=== PATIENT | female | born 1970 | race Caucasian/White ===

== ENCOUNTER 2023-05-16 11:38 | Observation (INO) | payer OTHER, SELFPAY ==
[2023-05-16] VITALS (8 sets, daily range): BP systolic 139–169; BP diastolic 75–102; BMI 22.3; BMI 21.7
[2023-05-16] MEDS: ZOFRAN 4 MG IV ×2 (06:33→17:27)
[2023-05-16 06:36] LABS: % Basophils 0.1 % (0-2); % Eosinophils 0.5 % (0-6); % Immature Granulocytes 0.3 % (0-0.5); % Lymphocytes 11.4 % (20.5-51.1); % Monocytes 8.1 % (1.7-9.3); % Neutrophils 79.6 % (42.2-75.2); Absolute Eosinophils 0.1 10^3/uL (0-0.7); Absolute Immature Granulocytes 0.1 10^3/uL (0-0.05); Absolute Lymphocytes 1.7 10^3/uL (1.2-3.4); Absolute Monocytes 1.2 10^3/uL (0.1-0.6); Hematocrit 36.1 % (37.0-47.0); Hemoglobin 12.7 g/dL (12.0-16.0); Mean Corp Hgb Conc. 35.2 g/dL (33.0-37.0); Mean Corpuscular Hgb 29.9 pg (27.0-31.0); Mean Corpuscular Volume 84.9 fL (81.0-99.0); Mean Platelet Volume 9.1 fL (7.4-10.4); Nucleated Red Blood Cells % 0 %; Platelet Count 379 10^3/uL (130-400); Red Blood Cell Count 4.25 10^6/uL (4.20-5.40); Red Cell Dist. Width 12.9 % (11.5-14.5)
[2023-05-16 06:49] LABS: ALT (SGPT) 26 U/L (0-35); AST (SGOT) 35 U/L (14-36); Albumin 5.3 g/dl (3.5-5.0); Alkaline Phosphatase 85 U/L (38-126); Blood Urea Nitrogen 20 mg/dl (7-17); Calcium 10.3 mg/dl (8.4-10.2); Carbon Dioxide 22 mmol/L (22-30); Chloride 96 mmol/L (98-107); Estimated Creatinine Clearance 69 ml/min; Glucose 130 mg/dl (70-99); Potassium 3.4 mmol/L (3.5-5.1); Sodium 133 mmol/L (135-145); Total Bilirubin 1.2 mg/dl (0.2-1.3); Total Protein 8.1 g/dl (6.3-8.2); eGFR > 60.00
--- NOTE | 2023-05-16 07:18 | ED.GENMED ---
History of Present Illness
General
Chief Complaint: Abdominal Symptoms
Time Seen by Provider: 05/16/23 07:00
Travel History
Have you had any contact with someone who has COVID-19?: No
Do you have any symptoms of coronavirus? Fever > 100 degrees, chills, cough, shortness of breath, sore throat, loss of taste or smell, muscle aches, or headache?: No
History of Present Illness
History of Present Illness:
Patient is 52-year-old female with a past medical of anxiety on medical marijuana here today for evaluation of approximately 3 to 4 days of nausea and vomiting. She reports greater than 20 episodes per day. No blood noted. She also reports a
small amount of diarrhea, 1-2 episodes per day. Diarrhea is noted to be watery. Patient has also noted generalized nonspecific persistent abdominal pain. No focality. No fevers. She has noted a mild cough. No congestion or sore throat. No
chest pain or difficulty breathing. Patient denies recent travel outside of the country. No recent antibiotic use. No sick contacts. She denies eating anything out of the ordinary. No prior abdominal surgeries.
Past History
Past History
ED Past Medical History: None
Social History
Tobacco: Non-smoker
Personal:
Living: with family
Review of Systems
Review of Systems
All Other Systems: ROS reviewed and negative except as documented in HPI and ROS
Phy Exam
Physical Exam
Physical Exam:
GENERAL: Alert , in no apparent distress
EYE: pupils equal and reactive
NECK: Supple, no significant adenopathy.
ENT: o/p clr, mmm.
CARDIAC: Regular rate and rhythm .
LUNGS: Clear breath sounds bilaterally, no acute respiratory distress, no wheezes/rales/rhonchi
ABDOMEN: Soft, mild nonfocal abdominal tenderness to palpation, no r/g, no cvat
NEUROLOGICAL: Alert and oriented, no focal neuro deficits
SKIN: Warm and dry, skin intact.
MUSCULOSKELETAL: No edema, well perfused.
PSYCH: Normal and appropriate interaction.
Course
Orders/Labs/Results
Orders:
Orders
05/16/23 06:28
CMP [Comprehensive Metabolic Panel] Urgent
Complete Blood Count/With Diff Urgent
Lipase Urgent
Comment: ADD ON
Magnesium Urgent
Comment: ADD ON
05/16/23 06:30
Ondansetron Injectable [Zofran] 4 mg .ROUTE .STK-MED ONE
05/16/23 06:32
Ondansetron Injectable [Zofran] 4 mg IV NOW STA
05/16/23 06:35
Electrocardiogram (*1) Urgent
Reason for Study: QTc Monitoring
EKG- Treatment ONCE
05/16/23 07:25
Lipase Urgent
Magnesium Urgent
Phosphorus Urgent
0.9% Sodium Chloride 1000 ml [Nss] 1,000 ml IV BOLUS
Test Result ONCE
05/16/23 07:26
CT Abd/pelvis W Iv Cont Urgent
Comment:
Reason For Exam: abd pain, vomiting
05/16/23 07:39
COVID-19 Antigen Urgent
Source: Nasal Swab
, Urine Qualitative Screen [HCG, Urine Qualitative Screen] Urgent
Date Specimen was Collected: 05/16/23
Time Specimen was Collected: 07:34
Urinalysis Reflex To Culture Urgent
Date Specimen was Collected: 05/16/23
Time Specimen was Collected: 07:34
Urine Microscopic Reflex Cult Urgent
Influenza A+B Rapid Molecular Urgent
KEV Source: Nasal Swab
Specimen Description:
Urine Culture Urgent
KEV Source: U
Specimen Description:
Date Specimen was Collected: 05/16/23
Time Specimen was Collected: 07:34
05/16/23 07:42
Add On- LAB Urgent
Tests Added?: magnesium, lipase, phosphorus, hcg
Abnormal Lab Results
05/16/23 05/16/23
06:28 07:39
WBC 15.0 H 10^3/uL
(4.8-10.8)
Hct 36.1 L %
(37.0-47.0)
Abs Immat Gran (auto) 0.1 H 10^3/uL
(0-0.05)
Absolute Neuts (auto) 12.0 H 10^3/uL
(1.4-6.5)
Absolute Monos (auto) 1.2 H 10^3/uL
(0.1-0.6)
Neutrophils % 79.6 H %
(42.2-75.2)
Lymphocytes % 11.4 L %
(20.5-51.1)
Sodium 133 L mmol/L
(135-145)
Potassium 3.4 L mmol/L
(3.5-5.1)
Chloride 96 L mmol/L
(98-107)
BUN 20 H mg/dl
(7-17)
Glucose 130 H mg/dl
(70-99)
Calcium 10.3 H mg/dl
(8.4-10.2)
Albumin 5.3 H g/dl
(3.5-5.0)
Lipase 457 H U/L
(23-300)
Urine Ketones 3+ A
(Negative)
Ur Occult Blood Reflex 3+ A
(Negative)
Urine Bilirubin 1+ A
(Negative)
Leukocyte Esterase Rfl Trace A
(Negative)
Urine RBC 16-20 A /HPF
(0-2)
Urine WBC (Reflex) 11-15 A /HPF
(0-5)
Urine Bacteria (Reflex) Moderate A
(Negative)
Urine Albumin (Reflex) 1+ A
(Neg - Trace)
05/16/23 06:28
05/16/23 06:28
Vital Signs
Initial and Last Documented VS:
Initial Vital Signs
Temp Pulse Resp BP Pulse Ox
97.6 F 93 16 168/102 97
05/16/23 06:00 05/16/23 06:00 05/16/23 06:00 05/16/23 06:00 05/16/23 06:00
Last Documented Vital Signs
Temp Pulse Resp BP Pulse Ox
97.6 F 93 16 166/82 98
05/16/23 06:00 05/16/23 06:00 05/16/23 06:00 05/16/23 07:00 05/16/23 07:00
MDM/Problems Addressed
Differential Diagnosis Includes:
Patient is 52-year-old female with a past medical of anxiety on medical marijuana here today for evaluation of approximately 3 to 4 days of nausea, vomiting, and abdominal pain. Overall, patient appears very well. She is mildly hypertensive here.
Physical examination described above. NPO. Will initiate laboratory testing. Will obtain CT scan of the abdomen and pelvis with IV contrast. Will insert IV and provide IV fluids and antiemetics. Will order viral testing.
05/16/2023 10:36: Screening labs reveal a leukocytosis to 15,000. Sodium 133. K 3.4. Chloride 96. BUN 20. Normal creatinine. Lipase 457. There is ketonuria and RBCs/WBCs. Urine culture will be sent. COVID testing negative. CT scan reveals extensive
diverticulosis with no CT evidence to suggest diverticulitis. Radiology states the differential includes possibility of gastroenteritis or very early diverticulitis. Patient made aware of findings. Differential at this time may be secondary to
gastroenteritis (viral) vs. hyperemesis from marijuana use vs. pancreatitis from ETOH use. Do not suspect diverticulitis given lack of CT findings. Discussed going home vs. admission to the hospital for continued treatment/monitoring. A trial of PO
was performed which patient failed. We will plan on admission to the hospital for further testing and evaluation. Patient stable at time of admission. All questions answered.
*Critical Care Note
Total Time (30-74mins, 75-104mins- exclusive of procedures): Not Applicable
ED Attending Note
-
Portions of this chart may have been created with voice recognition software.� Occasional wrong word or��sound alike� substitutions may have occurred due to the inherent limitations of voice recognition software.
Discharge Plan
Departure
Patient Disposition: Admit
Date of Disposition: 05/16/23
Time of Disposition: 10:19
Admit to: Med/Surg
Admit to doctor: Ernesto
Presentation/result/management discussed w/ accepting MD/DO: Hospitalist
Patient with high blood pressure during this ER visit?: Yes
Condition: Fair
Covid-19: Negative COVID-19
Discharge Problem:
Intractable nausea and vomiting, Elevated lipase
Prescriptions:
No Action
escitalopram oxalate 10 MG tablet
10 mg PO DAILY
bupropion HCl 150 MG tablet extended release 24 hr
300 mg PO DAILY
acetaminophen 325 MG tablet
650 mg PO Q4HPRN PRN (Reason: mild pain) Qty: 30 0RF
Referrals:
Enrique Gramajo MD [Family Provider] -
Interventions
Interventions:
*Risk Screen - Suicide Last Done: 05/16/23 06:00
*General Assessment Last Done: 05/16/23 06:00
*Neglect/Abuse Screening Last Done: 05/16/23 06:00
Discharge Date and Time
Print Language: UZBEK
[2023-05-16] MEDS: NSS 1000 IV (07:58)
[2023-05-16 08:04] LABS: Urine Albumin 1+ (Neg - Trace); Urine Bilirubin 1+ (Negative); Urine Character Clear (Clear); Urine Color Amber; Urine Glucose Negative (Negative); Urine Ketone 3+ (Negative); Urine Leukocyte Trace (Negative); Urine Nitrite Negative (Negative); Urine Occult Blood 3+ (Negative); Urine Specific Gravity 1.025 (<1.030); Urine Urobilinogen Negative (Neg - 1+)
[2023-05-16 08:09] LABS: COVID-19 Antigen Negative (Negative)
[2023-05-16 08:11] LABS: HCG, Urine Qualitative Screen Negative
[2023-05-16 08:15] LABS: Urine Bacteria Moderate (Negative); Urine Red Blood Cell 16-20 /HPF (0-2)
[2023-05-16 08:27] LABS: Lipase 457 U/L (23-300); Magnesium 1.9 mg/dl (1.6-2.3)
--- NOTE | 2023-05-16 11:27 | HPS.HSE ---
Family Physician
-
Family Physician: Enrique Gramajo
Chief Complaint
-
Nausea and vomiting for the last 3 days
History of Present Illness
52-year-old female with a past medical of anxiety on medical marijuana here today for evaluation of approximately 3 to 4 days of nausea and vomiting. She reports greater than 20 episodes per day. No blood noted. She also reports a small amount of
diarrhea, 1-2 episodes per day. Diarrhea is noted to be watery. Patient has also noted generalized nonspecific persistent abdominal pain. No focality. No fevers. She has noted a mild cough. No congestion or sore throat. No chest pain or
difficulty breathing. Patient denies recent travel outside of the country. No recent antibiotic use. No sick contacts. She denies eating anything out of the ordinary. No prior abdominal surgeries. She does mention in past and my history that
the patient took home a baby doc that was apparently homeless and was going to and this was taken home on Thursday the day immediately preceding her symptoms. She denied a any exposure to the dog excrement but was handling the talk on numerous
occasions unclear what hand hygiene was afterwards. Does admit to daily marijuana use that she takes orally via edibles for chronic anxiety. Also admits to daily alcohol usage but the last ingestion was Thursday prior to her symptoms had drank 4
beers at that time.
Results of CT scan were reviewed and were suggestive of possible underlying enteritis with a questionable of diverticulitis on the left side but nonspecific with diffuse diverticulosis noted. No mention of pancreatitis or gallbladder anomaly.
Initial lipase elevated at 450/15,000 leukocytosis./Hypokalemia 3.4
Medical History
Past Medical History
Past Medical History: Reports Other
Additional Past Medical History:
Chronic anxiety on medical marijuana
Past Surgical History: Reports None
Social History
Tobacco: Non-smoker
Alcohol: Daily
Drug: Marijuana (Medical marijuana for anxiety for years)
Personal:
Living: With Family
Employment: Employed
Family History
Family History: Not pertinent
Allergies / Home Medications
Allergies reflects when Allergies were last updated in [facility].
Home Medications with original date entered in [facility]
Allergy/Medication List:
Allergies
Allergy/AdvReac Type Severity Reaction Status Date / Time
Sulfa (Sulfonamide Allergy fever and Verified 05/16/23 06:32
Antibiotics) rash,
passed out
sulfasalazine Allergy fever and Verified 05/16/23 06:32
rash,
passed out
azithromycin [From Zithromax] AdvReac extreme Verified 05/16/23 06:32
dizziness
Home Medications
escitalopram oxalate 10 mg tablet 10 mg PO DAILY 04/06/14
bupropion HCl 150 mg 24 hr tablet, extended release 300 mg PO DAILY 09/09/18
acetaminophen 325 mg tablet 650 mg (2 x 325 mg) PO Q4HPRN PRN mild pain #30 tabs 09/22/18
Review of Systems
-
History Source: Patient
Constitutional: Reports See HPI; Denies Sleep Disturbance, Night Sweats or Chills
EENT: Reports No Symptoms and See HPI
Respiratory: Reports No Symptoms and See HPI
Cardiac: Reports No Symptoms and See HPI
Abdomen/GI: Reports Abdominal Pain (Mild points to epigastric area no radiation to back), Nausea (No hematemesis described), Vomiting and Diarrhea (1-2 times a day)
: Reports No Symptoms
Neurological: Reports No Symptoms
Psych: Reports No Symptoms
Physical Exam
Vital Signs
Vital Signs
Temp Pulse Resp BP Pulse Ox
97.6 F 93 16 166/82 98
05/16/23 06:00 05/16/23 06:00 05/16/23 06:00 05/16/23 07:00 05/16/23 07:00
Physical Exam
General: Well Developed
Respiratory: Clear
Cardiac: S1/S2 and Regular Rhythm
GI: Soft, Non Tender, Non Distended and Normal Bowel Sounds
Musculoskeletal: No Clubbing
Neuro: Awake and Alert
Psych: Calm
Laboratory Results
-
05/16/23 06:28
05/16/23 06:28
Laboratory Results
Total Bilirubin 1.2 mg/dl (0.2-1.3) 05/16/23 06:28
AST 35 U/L (14-36) 05/16/23:28
ALT 26 U/L (0-35) 05/16/23 06:28
Alkaline Phosphatase 85 U/L (38-126) 05/16/23:
Lipase 457 U/L (23-300) H 05/16/23 06:28
Data Reviewed
-
Critical Care Time (in minutes): 67
CT Scan: Report Reviewed by me and Discussed with Physician
Impression/Plan
-
IMPRESSION:
52-year-old female with a past medical of anxiety on medical marijuana here today for evaluation of approximately 3 to 4 days of nausea and vomiting. She reports greater than 20 episodes per day. No blood noted. She also reports a small amount of
diarrhea, 1-2 episodes per day. Diarrhea is noted to be watery. Patient has also noted generalized nonspecific persistent abdominal pain. No focality. No fevers. She has noted a mild cough. No congestion or sore throat. No chest pain or
difficulty breathing. Patient denies recent travel outside of the country. No recent antibiotic use. No sick contacts. She denies eating anything out of the ordinary. No prior abdominal surgeries. She does mention in past and my history that
the patient took home a baby doc that was apparently homeless and was going to and this was taken home on Thursday the day immediately preceding her symptoms. She denied a any exposure to the dog excrement but was handling the talk on numerous
occasions unclear what hand hygiene was afterwards. Does admit to daily marijuana use that she takes orally via edibles for chronic anxiety. Also admits to daily alcohol usage but the last ingestion was Thursday prior to her symptoms had drank 4
beers at that time.
Results of CT scan were reviewed and were suggestive of possible underlying enteritis with a questionable of diverticulitis on the left side but nonspecific with diffuse diverticulosis noted. No mention of pancreatitis or gallbladder anomaly.
Initial lipase elevated at 450/15,000 leukocytosis./Hypokalemia 3.4
Probable viral gastroenteritis versus mild pancreatitis
-CT imaging not definitive for either pancreatitis or diverticulitis
-No gallbladder pathology described on CT and clinical exam not indicative
-Does have alcohol use disorder but last ingestion was over 3 days ago 7 doubt risk of withdrawal but will treat as pancreatitis with elevated lipase
-IV fluids/ replete hypokalemia/clear liquids
-Cannot rule out hyperemesis from marijuana usage
-Antiemetics
-Analgesia with hydromorphone
Enteritis possibly from poultry exposure
-Took home baby duct with handling unclear hygiene
-Check stool for Salmonella Campylobacter etc.
-No apparent recent antibiotic exposure
-Would defer any antibiotics presently
Leukocytosis
-Could be reactive from any multiple factors
-Viral versus bacterial versus pancreatitis
Anxiety disorder
-Allow usage of buspirone and escitalopram
-Chronic medical marijuana use
DVT prophylaxis with Lovenox and venous pumps
Full CODE STATUS
--- NOTE | 2023-05-16 12:06 | CM ---
Cm reviewed medical records. OBS letter given.
Patient lives independently with spouse. Denies history of VN, SNF or DME. Patient confirmed that she is current with her PCP. Patient uses [facility] on [address].
PLAN: Home no needs.
[2023-05-16 14:05] LABS: Phosphorus 2.2 mg/dl (2.5-4.5)
[2023-05-16] MEDS: D5/0.45%NSS with KCL 20 MEQ 1000 IV (17:14)
[2023-05-16] MEDS: LOVENOX 40 MG SC (17:27)
[2023-05-16 18:27] LABS: TSH 1.21 uIU/ml (0.47-4.68)
[2023-05-16] MEDS: DILAUDID 0.5 MG IV (20:17)
[2023-05-16 23:55] LABS: Urine Albumin Trace (Neg - Trace); Urine Bilirubin Negative (Negative); Urine Character Clear (Clear); Urine Color Yellow; Urine Glucose Negative (Negative); Urine Ketone 3+ (Negative); Urine Leukocyte Negative (Negative); Urine Nitrite Negative (Negative); Urine Occult Blood 3+ (Negative); Urine Urobilinogen Negative (Neg - 1+); Urine pH 6.5 (5.0-9.0)
[2023-05-17 00:19] LABS: Urine Amorphous Seen; Urine Squamous Cell >30 /LPF (Few)
[2023-05-17 00:20] LABS: Urine Bacteria Few (Negative); Urine White Cell 0-2 /HPF (0-5)
[2023-05-17] MEDS: PEPCID 20 MG IV (02:07)
[2023-05-17] MEDS: D5/0.45%NSS with KCL 20 MEQ 1000 IV ×2 (02:59→13:53)
[2023-05-17 06:26] LABS: Hematocrit 34.5 % (37.0-47.0); Mean Corp Hgb Conc. 34.8 g/dL (33.0-37.0); Mean Corpuscular Hgb 29.8 pg (27.0-31.0); Mean Corpuscular Volume 85.6 fL (81.0-99.0); Mean Platelet Volume 9.3 fL (7.4-10.4); Platelet Count 323 10^3/uL (130-400); Red Blood Cell Count 4.03 10^6/uL (4.20-5.40); Red Cell Dist. Width 12.3 % (11.5-14.5); White Blood Cell Count 11.2 10^3/uL (4.8-10.8)
[2023-05-17 06:44] LABS: Blood Urea Nitrogen 7 mg/dl (7-17); Calcium 9.2 mg/dl (8.4-10.2); Carbon Dioxide 27 mmol/L (22-30); Chloride 95 mmol/L (98-107); Estimated Creatinine Clearance 92 ml/min; Glucose 120 mg/dl (70-99); Magnesium 1.9 mg/dl (1.6-2.3); Potassium 3.5 mmol/L (3.5-5.1); Sodium 131 mmol/L (135-145); eGFR > 60.00
[2023-05-17 06:54] LABS: Lipase 367 U/L (23-300)
[2023-05-17 07:00] VITALS: BP 148/88
[2023-05-17] MEDS: THIAMINE INJECTION 200 MG IV ×2 (08:05→20:03)
[2023-05-17] MEDS: WELLBUTRIN XL (24 hour extended release) 300 MG PO (08:06)
[2023-05-17] MEDS: LEXAPRO 10 MG PO (08:06)
[2023-05-17] MEDS: FOLVITE 1 MG PO (08:06)
--- NOTE | 2023-05-17 10:26 | W.PN.HOSP.TC ---
Today's Communication/Plan
-
Advance diet to full liquids
Continue IV fluids for now
Assessment / Plan
Assessment / Plan
52-year-old female with a past medical of anxiety on medical marijuana here today for evaluation of approximately 3 to 4 days of nausea and vomiting. She reports greater than 20 episodes per day. No blood noted. She also reports a small amount of
diarrhea, 1-2 episodes per day. Diarrhea is noted to be watery. Patient has also noted generalized nonspecific persistent abdominal pain. No focality. No fevers. She has noted a mild cough. No congestion or sore throat. No chest pain or
difficulty breathing. Patient denies recent travel outside of the country. No recent antibiotic use. No sick contacts. She denies eating anything out of the ordinary. No prior abdominal surgeries. She does mention in past and my history that
the patient took home a baby doc that was apparently homeless and was going to and this was taken home on Thursday the day immediately preceding her symptoms. She denied a any exposure to the dog excrement but was handling the talk on numerous
occasions unclear what hand hygiene was afterwards. Does admit to daily marijuana use that she takes orally via edibles for chronic anxiety. Also admits to daily alcohol usage but the last ingestion was Thursday prior to her symptoms had drank 4
beers at that time.
Results of CT scan were reviewed and were suggestive of possible underlying enteritis with a questionable of diverticulitis on the left side but nonspecific with diffuse diverticulosis noted. No mention of pancreatitis or gallbladder anomaly.
Initial lipase elevated at 450/15,000 leukocytosis./Hypokalemia 3.4
Probable viral gastroenteritis versus mild pancreatitis
-CT imaging not definitive for either pancreatitis or diverticulitis
-No gallbladder pathology described on CT and clinical exam not indicative
-Does have alcohol use disorder but last ingestion was over 3 days ago 7 doubt risk of withdrawal but will treat as pancreatitis with elevated lipase
-IV fluids/ replete hypokalemia/clear liquids>> advance to full liquids today
-Cannot rule out hyperemesis from marijuana usage
-Antiemetics
-Analgesia with hydromorphone
Enteritis possibly from poultry exposure/this is doubtful without continued diarrheal stooling
-Took home baby duct with handling unclear hygiene
-Check stool for Salmonella Campylobacter etc.
-No apparent recent antibiotic exposure
-Would defer any antibiotics presently
Leukocytosis improving
-Could be reactive from any multiple factors
-Viral versus bacterial versus pancreatitis
Anxiety disorder
-Allow usage of buspirone and escitalopram
-Chronic medical marijuana use
DVT prophylaxis with Lovenox and venous pumps
Full CODE STATUS
Anticipated Discharge: Within 24 hours
Subjective/Interval History
-
Date of Service: May 17, 2023
Describing less abdominal pain denies any cramping or diarrheal stooling unable to send any stool for culture as result.
Objective Data
-
Labs:
Laboratory Results
05/17/23
05:57
WBC 11.2 H
Hgb 12.0
Hct 34.5 L
Plt Count 323
Sodium 131 L
Potassium 3.5
Chloride 95 L
Carbon Dioxide 27
BUN 7
Creatinine 0.5 L
Glucose 120 H
Calcium 9.2
Vital Signs:
Vital Signs
Temp Pulse Resp BP Pulse Ox
98.6 F 76 18 148/88 97
05/17/23 07:00 05/17/23 07:00 05/17/23 07:00 05/17/23 07:00 05/17/23 07:00
I&O
05/16/23 05/17/23 05/18/23
06:59 06:59 06:59
Intake Total 120 / 120
Balance 120 / 120
Review of Systems
-
History Source: Patient
All other systems: Reviewed and negative
Constitutional: Denies Fever or No Appetite
EENT: Reports No Symptoms Reported
Respiratory: Reports No Symptoms
Cardiac: Reports No Symptoms
Abdomen/GI: Reports Abdominal Pain (Minor without radiation to back/no left lower quadrant pain)
Musculoskeletal: Reports No Symptoms
Skin: Reports No Symptoms
Neuro: Reports No Symptoms
Physical Exam
-
General: Well Developed
HEENT: Atraumatic
Respiratory: Clear to Auscultation
Cardiac: Regular Rhythm
GI: Soft, Nontender and Nondistended
Data Reviewed
-
Total Time Spent with Patient (in minutes): 56
CT Scan: Report Reviewed by me
Labs: Labs Reviewed by me (Lipase trending down sodium down to 131 potassium 3.5/leukocytosis trending down)
[2023-05-17 15:00] VITALS: BP 165/93
[2023-05-17] MEDS: LOVENOX 40 MG SC (17:45)
[2023-05-17 23:36] VITALS: BP 134/94
[2023-05-18] MEDS: D5/0.45%NSS with KCL 20 MEQ 1000 IV ×3 (00:36→18:29)
[2023-05-18 07:10] LABS: Hematocrit 32.3 % (37.0-47.0); Hemoglobin 11.2 g/dL (12.0-16.0); Mean Corp Hgb Conc. 34.7 g/dL (33.0-37.0); Mean Corpuscular Hgb 29.4 pg (27.0-31.0); Mean Corpuscular Volume 84.8 fL (81.0-99.0); Mean Platelet Volume 9.5 fL (7.4-10.4); Platelet Count 296 10^3/uL (130-400); Red Blood Cell Count 3.81 10^6/uL (4.20-5.40); Red Cell Dist. Width 12.2 % (11.5-14.5); White Blood Cell Count 7.5 10^3/uL (4.8-10.8)
[2023-05-18 07:25] VITALS: BP 168/92
[2023-05-18 07:32] LABS: ALT (SGPT) 21 U/L (0-35); AST (SGOT) 23 U/L (14-36); Albumin 4.2 g/dl (3.5-5.0); Alkaline Phosphatase 60 U/L (38-126); Blood Urea Nitrogen 2 mg/dl (7-17); Calcium 9.2 mg/dl (8.4-10.2); Carbon Dioxide 29 mmol/L (22-30); Chloride 98 mmol/L (98-107); Estimated Creatinine Clearance 92 ml/min; Glucose 110 mg/dl (70-99); Lipase 153 U/L (23-300); Sodium 131 mmol/L (135-145); Total Bilirubin 1.1 mg/dl (0.2-1.3); Total Protein 6.6 g/dl (6.3-8.2); eGFR > 60.00
--- NOTE | 2023-05-18 08:27 | W.PN.HOSP.TC ---
Today's Communication/Plan
-
IVF, Pain control, f/u stool studies
Assessment / Plan
Assessment / Plan
Physical exam:
General: Well Developed, Well Nourished and No Apparent Distress
HEENT: Normocephalic, Atraumatic and Moist Mucous Membranes
Respiratory: Clear to Auscultation; Negative Wheezes, Rales or Rhonchi
Cardiac: Regular Rhythm and S1/S2
GI: Soft, Nontender and Nondistended
Musculoskeletal: No Clubbing, No Cyanosis and No Edema
Neuro: Awake, Alert and Oriented
Psych: Calm
A/P:
Results of CT scan were reviewed and were suggestive of possible underlying enteritis with a questionable of diverticulitis on the left side but nonspecific with diffuse diverticulosis noted. No mention of pancreatitis or gallbladder anomaly.
Initial lipase elevated at 450/15,000 leukocytosis./Hypokalemia 3.4
Likely viral gastroenteritis (component of cannabinoid syndrome cannot be excluded). Doubt pancreatitis:
-CT imaging not definitive for either pancreatitis or diverticulitis
-No gallbladder pathology described on CT and clinical exam not indicative
-Does have alcohol use disorder but last ingestion was over 3 days ago 7 doubt risk of withdrawal but will treat as pancreatitis with elevated lipase
-IV fluids--> Keep full liquids today
-Antiemetics
-Analgesia with hydromorphone
Hyponatremia
Likely volume depletion
Mild
Continue to monitor
Enteritis possibly from poultry exposure/this is doubtful without continued diarrheal stooling
-Check stool for Salmonella Campylobacter etc.-->follow-up stool cultures, still pending
-No apparent recent antibiotic exposure
-Would defer any antibiotics presently
Leukocytosis improving
-WBC normal 7.5 today
-Could be reactive from any multiple factors
Anxiety disorder
-Allow usage of buspirone and escitalopram
-Chronic medical marijuana use
DVT prophylaxis with Lovenox and venous pumps
Full CODE STATUS
Anticipated Discharge: 24 - 48 hours
Subjective/Interval History
-
Date of Service: May 18, 2023
Patient having abdominal cramps today and some nausea. She still having some diarrhea as well.
Objective Data
-
Labs:
Laboratory Results
05/18/23
06:17
WBC 7.5
Hgb 11.2 L
Hct 32.3 L
Plt Count 296
Sodium 131 L
Potassium 4.0
Chloride 98
Carbon Dioxide 29
BUN 2 L
Creatinine 0.5 L
Glucose 110 H
Calcium 9.2
Total Bilirubin 1.1
AST 23
ALT 21
Alkaline Phosphatase 60
Vital Signs:
Vital Signs
Temp Pulse Resp BP Pulse Ox
98.6 F 65 17 168/92 99
05/18/23 07:25 05/18/23 07:25 05/18/23 07:25 05/18/23 07:25 05/18/23 07:25
I&O
05/17/23 05/18/23 05/19/23
06:59 06:59 06:59
Intake Total 1740 / 1740
Balance 1740 / 1740
[2023-05-18] MEDS: THIAMINE INJECTION 200 MG IV ×2 (08:41→20:52)
[2023-05-18] MEDS: WELLBUTRIN XL (24 hour extended release) 300 MG PO (08:41)
[2023-05-18] MEDS: LEXAPRO 10 MG PO (08:41)
[2023-05-18] MEDS: FOLVITE 1 MG PO (08:41)
[2023-05-18] MEDS: ZOFRAN 4 MG IV (08:43)
[2023-05-18] MEDS: DILAUDID 0.5 MG IV (09:37)
[2023-05-18 15:12] VITALS: BP 130/86
--- NOTE | 2023-05-18 15:48 | CM ---
Patient seen bedside.
Offered Alcohol counseling and [facility] services, patient declined, denies problems with ETOH, has an occasional drink.
Plan: home no needs anticipated.
[2023-05-18] MEDS: LOVENOX 40 MG SC (17:12)
[2023-05-18 23:36] VITALS: BP 126/74
[2023-05-19] MEDS: D5/0.45%NSS with KCL 20 MEQ 1000 IV (04:33)
[2023-05-19 07:30] VITALS: BP 129/84
[2023-05-19] MEDS: WELLBUTRIN XL (24 hour extended release) 300 MG PO (08:10)
[2023-05-19] MEDS: LEXAPRO 10 MG PO (08:10)
[2023-05-19] MEDS: FOLVITE 1 MG PO (08:10)
[2023-05-19] MEDS: THIAMINE INJECTION 200 MG IV (08:10)
--- NOTE | 2023-05-19 09:16 | W.PN.HOSP.TC ---
Today's Communication/Plan
-
Continue current management. Discharge planning today.
Assessment / Plan
Assessment / Plan
Physical exam:
General: Well Developed, Well Nourished and No Apparent Distress
HEENT: Normocephalic, Atraumatic and Moist Mucous Membranes
Respiratory: Clear to Auscultation; Negative Wheezes, Rales or Rhonchi
Cardiac: Regular Rhythm and S1/S2
GI: Soft, Nontender and Nondistended
Musculoskeletal: No Clubbing, No Cyanosis and No Edema
Neuro: Awake, Alert and Oriented
Psych: Calm
A/P:
Results of CT scan were reviewed and were suggestive of possible underlying enteritis with a questionable of diverticulitis on the left side but nonspecific with diffuse diverticulosis noted. No mention of pancreatitis or gallbladder anomaly.
Initial lipase elevated at 450/15,000 leukocytosis./Hypokalemia 3.4
Likely viral gastroenteritis (component of cannabinoid syndrome cannot be excluded). Doubt pancreatitis:
-CT imaging not definitive for either pancreatitis or diverticulitis
-No gallbladder pathology described on CT and clinical exam not indicative
-Does have alcohol use disorder but last ingestion was over 3 days ago 7 doubt risk of withdrawal but will treat as pancreatitis with elevated lipase
-IV fluids--> advance full liquid to low residue diet today
-Antiemetics
-Analgesia with hydromorphone
-Patient comfortable going home today
Hyponatremia
Likely volume depletion
Mild
Continue to monitor
Enteritis possibly from poultry exposure/this is doubtful without continued diarrheal stooling
-Check stool for Salmonella Campylobacter etc.-->follow-up stool cultures, still pending
-No apparent recent antibiotic exposure
-Would defer any antibiotics presently
Leukocytosis improving
-WBC normal 7.5 today
-Could be reactive from any multiple factors
Anxiety disorder
-Allow usage of buspirone and escitalopram
-Chronic medical marijuana use
DVT prophylaxis with Lovenox and venous pumps
Full CODE STATUS
Anticipated Discharge: Today
Subjective/Interval History
-
Date of Service: May 19, 2023
Patient no longer has nausea. Able to tolerate food
Objective Data
-
Vital Signs:
Vital Signs
Temp Pulse Resp BP Pulse Ox
98.2 F 74 18 129/84 99
05/19/23 07:30 05/19/23 07:30 05/19/23 07:30 05/19/23 07:30 05/19/23 07:30
I&O
05/18/23 05/19/23 05/20/23
06:59 06:59 06:59
Intake Total 1740 / 1740 3450 / 3450
Balance 1740 / 1740 3450 / 3450
[2023-05-19] MEDS: NSS 1000 IV (09:39)
--- NOTE | 2023-05-19 10:29 | W.DCSUMMARY ---
Discharge Summary
Discharge Data
Date of Admission: 05/16/23
Date of Discharge: 05/19/23
-
Pending Results: No
Hospital Course
Patient 52 years of hematological nausea vomiting and diarrhea. It was felt she had some viral gastroenteritis. Patient was given IV fluids and supportive care was given. She was placed on clear liquid diet that was advanced slowly and she
tolerated up to low residue diet today. Her symptoms improved substantially. Stool culture still pending. Her WBC went down to normal. She feels back close to her baseline. She is going to be discharged in stable condition today.
Discharge Plan
-
Patient Disposition: Home (Routine Discharge)
Discharge Diagnosis/Procedures: Acute gastroenteritis. Hyponatremia. Anxiety
Diet: Low Residue
Activity: As tolerated
Driving Restrictions: As prior to admission
Blood Work: PCP to order CBC, BMP within 1 week
Referrals:
Enrique Gramajo MD [Family Provider] - in less than 1 week
Prescriptions:
Continued
escitalopram oxalate 10 MG tablet
10 mg PO HS
bupropion HCl 300 mg tablet extended release 24 hr
300 mg PO HS
Discharge Orders:
Discharge Patient (As Directed); Ordered 05/19/23
Ordered By: Brant Gil
Discharge Date and Time
Discharge Date/Time: 05/19/23 11:41
Print Language: [place]
== END 2023-05-19 11:41 | disposition home or self-care (01) ==
LOC: 4 WEST ACU 11:38
PROVIDERS: Physician Assistant; ADMITTING PHYSICIAN Internal Medicine; ATTENDING PHYSICIAN Hospitalist; EMERGENCY PHYSICIAN Emergency Medicine; FAMILY PHYSICIAN Family Medicine
DX: A08.4 Viral intestinal infection, unspecified (principal); E87.1 Hypo-osmolality and hyponatremia; F41.9 Anxiety disorder, unspecified; K57.90 Diverticulosis of intestine, part unspecified, without perforation or abscess without bleeding; Z79.899 Other long term (current) drug therapy
CPT/HCPCS: 74177; 80048; 80053; 81003; 81015; 81025; 83690; 83735; 84100; 84443; 85025; 85027; 87045; 87046; 87086; 87427; 87502; 87798; 87811; 93005; 96361; 96374; 99285; G0378; Q9967